=== PATIENT | male | born 1945 | race Caucasian/White ===

== ENCOUNTER 2019-01-27 11:06 | Inpatient (IN) | payer OTHER ==
[~2019-01-27] VITALS: Ht 177.8 cm; Wt 93.9 kg
[2019-01-27 11:10] VITALS: BP_SYST 125
[2019-01-27] MEDS ORDERED: ASPIRIN 81 MG TABLET(ECOTRIN) PO ONE (11:15)
--- NOTE | 2019-01-27 11:15 | NUR ---
Patient presented to ER with chest pain. Patient A&Ox4, rash to left chest and buttocks, pain 2/10, denies N/V/D. Patient brought in by , states patient was found in [place] living in a hotel, and confused. Patient belarusian speaking only states he came to ER for "chest itchy rash". Patietn states he has Diabetes and did check glucose this am , in normal range. 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
--- NOTE | 2019-01-27 11:25 | NUR ---
SHIRA Hitchcock at bedside examining patient.
[2019-01-27] MEDS ORDERED: NITROGLYCERIN 0.4 MG TAB.SUBL SL ONE (11:30)
[2019-01-27] MEDS ORDERED: NACL 0.9% 1,000 ML IV ONE (11:30)
--- NOTE | 2019-01-27 11:35 | NUR ---
Patient to CT with radiology staff via wheelchair
[2019-01-27 11:40] LABS: BASOPHILS % (AUTO) 0.7 % (0.0-2.0); EOSINOPHILS # (AUTO) 0.4 K/uL (0.0-0.4); EOSINOPHILS % (AUTO) 7.5 % (0.0-4.0); HEMATOCRIT 35.2 % (36-54); HEMOGLOBIN 11.8 g/dL (14.0-18.0); LYMPHOCYTES # (AUTO) 1.3 K/uL (1.0-5.5); LYMPHOCYTES % (AUTO) 22.7 % (20.5-51.5); MEAN CORPUSCULAR HEMOGLOBIN 32 pg (27-31); MEAN CORPUSCULAR HGB CONC 34 % (32-36); MEAN CORPUSCULAR VOLUME 96 fL (79.0-98.0); MONOCYTES # (AUTO) 0.5 K/uL (0.0-1.0); MONOCYTES % (AUTO) 8.2 % (1.7-9.3); NEUTROPHILS # (AUTO) 3.6 K/uL (1.8-7.7); NEUTROPHILS % (AUTO) 60.9 % (40.0-70.0); PLATELET COUNT (AUTO) 177 K/uL (130-430); RED BLOOD CELL COUNT(AUTO) 3.66 MIL/uL (4.2-6.2); RED CELL DISTRIBUTION WIDTH 14.7 % (9.0-15.0); WHITE BLOOD COUNT (AUTO) 5.9 K/uL (4.8-10.8)
[2019-01-27 11:53] LABS: ANION GAP 8 (5-15); CALCIUM 8.2 mg/dL (8.4-11.0); CHLORIDE 114 mmol/L (98-107); CREATININE 3.65 mg/dL (0.55-1.30); GLUCOSE 134 mg/dL (70-99); SODIUM SERUM 141 mmol/L (136-145); UREA NITROGEN, BLOOD 57 mg/dL (8-21)
--- NOTE | 2019-01-27 11:53 | NUR ---
Report to Isabella LOPEZ
[2019-01-27 12:02] LABS: ALANINE AMINOTRANSFERASE 12 U/L (12-78); ALBUMIN 2.2 g/dL (3.4-4.8); ASPARTATE AMINOTRANSFERASE 20 U/L (10-37); TOTAL BILIRUBIN 0.1 mg/dL (0.0-1.0)
--- NOTE | 2019-01-27 12:11 | NUR ---
pt is currently getting an x-ray at the bedside.
[2019-01-27 13:15] LABS: BILIRUBIN,URINE NEGATIVE (NEGATIVE); BLOOD, URINE 1+ (NEGATIVE); CLARITY/URINE CLEAR (CLEAR); COLOR,URINE YELLOW (YELLOW); GLUCOSE,URINE TRACE (NEGATIVE); KETONES,URINE NEGATIVE (NEGATIVE); LEUKOCYTE ESTERASE ,URINE NEGATIVE (NEGATIVE); NITRITE, URINE NEGATIVE (NEGATIVE); PROTEIN URINE 2+ (NEGATIVE); UROBILINOGEN,URINE 0.2 (0.2-1.0)
[2019-01-27] MEDS ORDERED: cefTRIAXone 1 GM in D5W 50 ML IV ONE (13:30)
[2019-01-27] MEDS ORDERED: cefTRIAXone 1 GM IVPB PREMIX 50 ML IV ONE (13:30)
[2019-01-27] MEDS ORDERED: D5/0.45 NS 1,000 ML IV ONE (13:30)
[2019-01-27 13:33] LABS: BARBITURATE, URINE NEGATIVE (NEG <=200); BENZODIAZEPINE, URINE NEGATIVE (NEG <=150); CANNABINOID, URINE NEGATIVE (NEG <=50); COCAINE, URINE NEGATIVE (NEG <=150); METHAMPHETAMINES SCREEN,URINE NEGATIVE (NEG <=500); OPIATE, URINE NEGATIVE (NEG <=100); PHENCYCLIDINE SCREEN,URINE NEGATIVE (NEG <=25); UR TRICYCLIC ANTIDEPRESSANTS NEGATIVE (NEG <=300); URINE AMPHETAMINE NEGATIVE (NEG <=500); URINE METHADONE NEGATIVE (NEG <=200); URINE OXYCODONE SCREEN NEGATIVE (NEG <=100); URINE PROPOXYPHENE SCREEN NEGATIVE (NEG <=300)
[2019-01-27 13:38] LABS: BACTERIA,URINE FEW /HPF (None Seen); WBC,URINE 0-3 /HPF (0-3)
--- NOTE | 2019-01-27 14:06 | NUR ---
Patient will be admitted to care of Dr. Vazquez. Admitted to Tele unit. Will go to room 122B. Belongings list completed. Summary report printed. Report will be given at bedside.
--- NOTE | 2019-01-27 14:27 | NUR ---
ADMIT NOTE Received pt from ER to the floor with a diagnosis of aloc AND DEHYDRATION. Admission process initiated. patient oriented to pain management, safety and call light-teach back done.
[2019-01-27 15:14] VITALS: BP_SYST 166
--- NOTE | 2019-01-27 15:18 | NUR ---
Chief School Finance Officer: meet Pt. in ER at the request of Rn. Pt. is homeless and was found in [place] in a hotel. PORCELAIN TURNER met with pt. and pts. daughter. Ange who stated she and her family had been trying to find her father for a long time. Her cousin who resides in [place] was able to find him there in a hotel. Pt. has diabetes and does not take any medication or see any drs. During this conversation, Rn came in to seee pts. feet. Daughter removed pts. shoes and socks and began to cry as she saw her father/pt. had two left foot toes removed. PORCELAIN TURNER assured her that her father was in good hands and she was a good daughter to have been able to track her father down in [place]. Ange stated her cousin put her father on a plane, she picked him up and was going to take him to a dr. but because her father/pt. was talking and not making sense, her and her mom brought pt. in to ER here at [facility]. Aneg [facility] been a [facility] since she was younger. Father has lived in [facility] for years. Ange feels like her father may have declined beginning 5 years ago as he had a son who was in a car accident and from injuries. Ange was told that her father was being admitted to the hospital and she will be in contact with her sister who resides in [place] to come be with her and her father and mother. Addendum: 01/27/19 at 1643 by Tonia ARDON Chief School Finance Officer: Follow up PORCELAIN TURNER met with pt. daughter and formally known as ex- (daughter stated they pt. and never ). Daughter, Sotero stated pt. has no insurance. PORCELAIN TURNER will make a referral to Mata from [employer]. Daughter thanked PORCELAIN TURNER. PORCELAIN TURNER sent Mata from [employer] a email msg. asking for assistance for this pt. PORCELAIN TURNER followed up with a phone call.
--- NOTE | 2019-01-27 15:38 | NUR ---
NOTES During suni gathering and interview with the patient, daughter and , Daughter Ange stated that the family has not seen patient for at least 39 years and that they cannot say if patient current mentation is normal to him. per daughter, a cousin in [place] found her father living in a hotel and ange instructed her cousin to put him in a plane to come to [place]. Per Ange, patient is staying with her other sister who lives in an apartment. When coremaker helper asked Ange if patient staying with sister is supervisor intermediates, or permanent, Ange answered no. When asked where the patient will go after discharge from the hospital, Ange answered I will find him help. Patient was referred to coordinator volunteer services
[2019-01-27 16:50] VITALS: BP_SYST 164
--- NOTE | 2019-01-27 17:33 | NUR ---
ROUNDS/PHOTOS Pt resting quietly in bed with no s/s resp distress, no c/o chest pain or chest pressure. Photos of red, dry skin taken. No changes. Pt's at bedside. Call light within reach.
--- NOTE | 2019-01-27 18:45 | NUR ---
CLOSING NOTE Pt sitting up in bed visiting with family, no s/s resp distress, no c/o chest pain or chest pressure. IVF infusing well to LFA at ordered rate with no s/s infiltration to site. Pt seen by high school social studies tutor earlier. Needs met, call light within reach.
[2019-01-27 19:00] VITALS: BP_SYST 153
--- NOTE | 2019-01-27 19:15 | NUR ---
change of shift,.pt.is a new admission;01/27/19.pt.presents language barrier;czech;primary language.pt.presents cutaneous issues;dermatitis;several locations;kathryn;rn :day-shift has photographed th skin presentations.iv access;intact;patent; iv fluids infusing.general status stable.respiratory statu stable@room air;unlabored.pt.utilizing the urinal;w/in reach of the pt.call light/telephone w/in reach of the pt. is present w/in sdch but has yet to assess the pt.
[2019-01-27 20:00] VITALS: BP_SYST 157
--- NOTE | 2019-01-27 20:00 | NUR ---
pt.assessed.v/s assessed.b/p values elevated.to f/u apprise .pt.presents divehi;primary language:i am to attend to the pt;divehi.iv aces intact;patent.iv fluids infusing.no c/o pain,nausea.pt.utilizing the urinal.i have inspected the urinal;i have measured/cleaned the urinal.placed w/in reach of the pt.call light/telephone w/in reach of the pt.
--- NOTE | 2019-01-27 20:30 | NUR ---
present. is assessing the pt.i have apprised and presented the pt's cutaneous issue;dermatitis;several locations. has assessed the cutaneous presentation.i have apprised the pt's medical hx;pt.presents diabetes.i have assessed the blood glucose.value;141mg/dl.i have apprised the pt/dtr of the value.pt's dtr has returned to the pt's room.dtr is apprised of ;attending md@[facility]. has procured additional information re:pt's social/medical history form the dtr.
--- NOTE | 2019-01-27 21:00 | NUR ---
2100p medications administered.pt.capable to consume medications whole.pt's dtr had requested diet;josue clemons the pt. i have provided the drink.no additional requests@posited @this hour.
[2019-01-27] MEDS: amLODIPine BESYLATE 10 MG TABLET PO SCH ×2 (21:35→21:38)
--- NOTE | 2019-01-27 22:00 | NUR ---
pt.assed.pt.preset quiewcxt affctc;alms,somnolent.i have attended to the urinal;measured/cleaned.iv access;intact;patent;iv fluids infusing.no c/o webster,anusea.iv access intrxt;'patent.pt.capable to reposition self.call light/telephone w/in reach of the pt.
--- NOTE | 2019-01-28 | NUR ---
pt.assessed.v/s assessed.values w/in normal limits.no c/o pain,nausea.urinal inspected.i have attended to the urinal;measured cleaned. placed w/in reach of the pt.iv access intact;patent iv fluids infusing.general status stable.respiratory status stable;unlabored.; call light/telephone w/in the reach of the pt.
--- NOTE | 2019-01-28 00:48 | NUR ---
paged paged for Dr Vazquez, dialed . s/w Karoline
[2019-01-28 00:56] VITALS: BP_SYST 158
--- NOTE | 2019-01-28 02:00 | NUR ---
pt.assessed.pt.presents quiescent affect;calm,somnolent.iv access intact;patent.iv fluids infusing.i have inspected the urinal;clean:w/in reach of the pt.general status stable.respiratory status stable@room air.pt.capable to reposition self. call light/telephone w/in reach of the pt.
--- NOTE | 2019-01-28 04:00 | NUR ---
pt.assessed.pt.presents quiescent affect;calm,somnolent.pt.assessed for cleanliness.i have inspected the urinal:measured/cleaned placed w/in reach of the pt.iv access;intact;patent;iv fluids infusing.general status stable.respiratory status stable: unlabored.pt.capable to reposition self.call light/telephone w/in reach of the pt.
--- NOTE | 2019-01-28 06:30 | NUR ---
pt.assessed.pt.presents quiescent affect;calm,viewing tv programming;dtr remained@the bedside.no c/o pain,nausea. iv access;intact;patent;iv fluids infusing.pt.assessed for cleanliness.general status stable.respiratory status stable.pt. capable to reposition self.call light/telephone w/in reach of the pt.
--- NOTE | 2019-01-28 07:50 | NUR ---
OPENING NOTE RECEIVED PATIENT FROM DATA WAREHOUSE ADMINISTRATOR. PATIENT AWAKE IN BED TALKING TO DAUGHTER. A/OX3. DENIES PAIN. ROOM AIR. NO ACUTE DISTRESS. NO SOB. RESPIRATION EVEN AND UNLABORED. SKIN WARM AND DRY TO TOUCH. IV INTACT AND PATENT; NO REDNESS/INFILTRATION NOTED. BED LOW AND LOCKED POSITION. SIDERAIL UPX3. BED ALARM ON. CALL LIGHT IN REACH. CONT TO MONITOR.
[2019-01-28 08:00] VITALS: BP_SYST 140
[2019-01-28 08:35] LABS: ANION GAP 4 (5-15); CALCIUM 8.3 mg/dL (8.4-11.0); CHLORIDE 111 mmol/L (98-107); CREATININE 2.82 mg/dL (0.55-1.30); GLUCOSE 125 mg/dL (70-99); POTASSIUM 4.1 mmol/L (3.5-5.1); SODIUM SERUM 135 mmol/L (136-145); UREA NITROGEN, BLOOD 45 mg/dL (8-21)
[2019-01-28] MEDS: amLODIPine BESYLATE 10 MG TABLET PO SCH (08:38)
[2019-01-28] MEDS: ASPIRIN 81 MG TAB.CHEW PO SCH (08:38)
--- NOTE | 2019-01-28 08:40 | NUR ---
MEDS ALL DUE MEDS ADMINISTERED ORDERED AND CASEY WELL. TEACHING DONE ON MEDICATION AND ASE. RUDY DAUGHTER AT BEDSIDE
--- NOTE | 2019-01-28 10:45 | NUR ---
NOTE PATIENT SITTING UP IN BED TALKING TO YOUNGER BROTHER. ALL NEEDS MET. CONT TO MONITOR
--- NOTE | 2019-01-28 10:53 | NUR ---
Nutrition Update Ashok Scale 13 noted. Pt admitted for altered level of consciousness and dehydration Diet: Renal BMI: 29.9 m2/kg RD to follow per nutrition care standards.
--- NOTE | 2019-01-28 11:43 | NUR ---
NOTE PATIENT RESTING IN BED. STABLE. NO ACUTE DISTRESS. NOTED RISE AND FALL OF CHEST. RESP EVEN AND UNLABORED. SKIN WARM AND DRY TO TOUCH. CALL LIGHT IN REACH. CONT TO MONITOR
[2019-01-28 12:34] VITALS: BP_SYST 134
--- NOTE | 2019-01-28 13:48 | NUR ---
NOTE PATIENT SITTING UP IN BED. STABLE. TALKING TO RUDY. REQUESTED FOR MORE ICE WATER. ALL NEEDS MET. CALL LIGHT IN REACH. CONT TO MONITOR
--- NOTE | 2019-01-28 13:54 | NUR ---
/ SPOKE TO BROOKLYNFUAD TO REQUEST FOR CONSULT WITH ; IS ONCALL. AWAITING FOR CALL BACK
--- NOTE | 2019-01-28 15:40 | NUR ---
NOTE STABLE. DENIES PAIN. ASSISTED PATIENT TO BATHROOM WITH FWW. PATIENT HAD SLOW GAIT. ALL NEEDS MET CONT TO MONITOR.
[2019-01-28 17:00] VITALS: BP_SYST 139
--- NOTE | 2019-01-28 17:01 | NUR ---
NOTE PATIENT AWAKE IN BED TALKING TO FAMILY. DENIES ANY PAIN. NO ACUTE DISTRESS. CLEAN AND DRY. ALL NEEDS MET. CONT TO MONITOR
--- NOTE | 2019-01-28 17:13 | NUR ---
Dietitian Recommendations 1. Continue renal standard diet Please see Nutrition Assessment for further details. LT, RD
--- NOTE | 2019-01-28 17:27 | NUR ---
SPOKE TO REGARDING CONSTIPATION AND DVT PROPHYLAXIS RECEIVED NEW ORDER FOR COLACE AND MILK OF MAGNESIA ORDERED FOR CONSTIPATION AND BILAT SCDs FOR DVT PPX. ORDER NOTED AND CARRIED OUT. CONT TO MONITOR
[2019-01-28] MEDS ORDERED: MILK OF MAGNESIA 30 ML UDC PO PRN (17:30)
--- NOTE | 2019-01-28 18:32 | NUR ---
SEEN AND EXAMINED BY AT BEDSIDE. INFORMED MD REGARDING HYDRATION; WILL ORDER BLOODWORK FOR TOMORROW AND WILL DECIDE AFTER RESULTS. RUDY AT BEDSIDE ASSISTING WITH DINNER
--- NOTE | 2019-01-28 18:52 | NUR ---
CLOSING NOTE PATIENT AWAKE IN BED TALKING TO FAMILY. STABLE. DENIES ANY PAIN. NO ACUTE DISTRESS. NO SOB. RESP EVEN AND UNLABORED. IV INTACT AND PATENT; NO REDNESS/INFILTRATION NOTED. SKIN WARM AND DRY TO TOUCH. BED IN LOW AND LOCKED POSITION. SIDERAIL UPX2. BED ALARM ON. CASEY BILAT SCDs. ALL NEEDS MET. CONT TO MONITOR. CALL LIGHT IN REACH. WILL ENDORSE TO ONCOMING SHIFT
--- NOTE | 2019-01-28 19:20 | NUR ---
CHANGE OF SHIFT: pt. awake, alert with family members at bedside, swiss speaking, denies any discomfort. fall risk precautions. no complaints noted. call light within reach. will reassess later.
--- NOTE | 2019-01-28 20:00 | NUR ---
NOTES: Dr. Valladares here, seen pt. and talked to pt. and . denies any chest pain nor discomfort at this time. MD wants to start on IVF. moves all extremities. IV lock on left antecubital. on operating room scheduler and shows sinus rhythm and ST depression. will stay for the night. call within reach, on fall risk precautions.
[2019-01-28] MEDS: DOCUSATE SODIUM 100 MG CAPSULE PO SCH (20:14)
[2019-01-28 20:15] VITALS: BP_SYST 143
[2019-01-28] MEDS: NACL 0.9% 1,000 ML IV SCH (21:16)
--- NOTE | 2019-01-28 22:00 | NUR ---
NOTES: urine sent for test ordered by Dr. Valladares. IV NS started @ 50 cc/hr. pt. informed. needs attended.
--- NOTE | 2019-01-29 00:35 | NUR ---
NOTES: pt. checked, sleeping, kept warm with blanket.
[2019-01-29 00:48] VITALS: BP_SYST 155
--- NOTE | 2019-01-29 02:58 | NUR ---
NOTES: awakened, assisted to the restroom with walker.
--- NOTE | 2019-01-29 04:37 | NUR ---
NOTES: pt. went back to sleep. no complaints. cardiac pattern unchanged.
--- NOTE | 2019-01-29 05:47 | NUR ---
NOTES: pt. already awake, cannot go back to sleep, remain at bedside helping. TV on, feeling happy this am, no complaints. IVF infusing.
--- NOTE | 2019-01-29 06:25 | NUR ---
CLOSING NOTES; pt. awake, alert, no acute distress. due am lab draw. IVF patent and infusing. denies any discomfort at this time. for further care and assistance. at bedside, call light within reach.
[2019-01-29 06:51] LABS: BASOPHILS % (AUTO) 0.6 % (0.0-2.0); EOSINOPHILS # (AUTO) 0.5 K/uL (0.0-0.4); HEMATOCRIT 33.7 % (36-54); HEMOGLOBIN 11.5 g/dL (14.0-18.0); LYMPHOCYTES # (AUTO) 1.3 K/uL (1.0-5.5); LYMPHOCYTES % (AUTO) 19.4 % (20.5-51.5); MEAN CORPUSCULAR HEMOGLOBIN 32 pg (27-31); MEAN CORPUSCULAR HGB CONC 34 % (32-36); MEAN CORPUSCULAR VOLUME 95 fL (79.0-98.0); MONOCYTES # (AUTO) 0.5 K/uL (0.0-1.0); MONOCYTES % (AUTO) 7.2 % (1.7-9.3); NEUTROPHILS # (AUTO) 4.4 K/uL (1.8-7.7); NEUTROPHILS % (AUTO) 64.8 % (40.0-70.0); PLATELET COUNT (AUTO) 171 K/uL (130-430); RED BLOOD CELL COUNT(AUTO) 3.54 MIL/uL (4.2-6.2); RED CELL DISTRIBUTION WIDTH 14.8 % (9.0-15.0); WHITE BLOOD COUNT (AUTO) 6.8 K/uL (4.8-10.8)
[2019-01-29 07:12] LABS: ANION GAP 3 (5-15); CHLORIDE 111 mmol/L (98-107); GLUCOSE,RANDOM 124 mg/dl (70-99); POTASSIUM 4.2 mmol/L (3.5-5.1); SODIUM SERUM 134 mmol/L (136-145)
--- NOTE | 2019-01-29 07:34 | NUR ---
OPENING NOTE PATIENT EASILY AROUSABLE. STABLE. DENIES ANY PAIN. ROOM AIR. NO ACUTE DISTRESS. NO SOB. RESPIRATION EVEN AND UNLABORED. SKIN WARM AND DRY TO TOUCH. IV INTACT AND PATENT; CASEY IVF HYDRATION ORDERED. BED IN LOW AND LOCK POSITION. SIDERAIL UPX2. BED ALARM ON. ALL NEEDS MET. CALL LIGHT IN REACH. CONT TO MONITOR
[2019-01-29 07:46] VITALS: BP_SYST 146
[2019-01-29 07:49] LABS: UREA NITROGEN, BLOOD 40 mg/dL (8-21)
[2019-01-29 07:51] LABS: CALCIUM 8.1 mg/dL (8.4-11.0); CREATININE 2.61 mg/dL (0.55-1.30)
[2019-01-29 07:52] LABS: PHOSPHORUS 2.8 mg/dL (2.7-4.5)
[2019-01-29 07:54] LABS: ANION GAP 4 (5-15); CHLORIDE 112 mmol/L (98-107); GLUCOSE 121 mg/dL (70-99); POTASSIUM 4.4 mmol/L (3.5-5.1); SODIUM SERUM 136 mmol/L (136-145)
[2019-01-29 07:56] LABS: UREA NITROGEN, BLOOD 39 mg/dL (8-21)
[2019-01-29 07:57] LABS: CALCIUM 8.1 mg/dL (8.4-10.2)
[2019-01-29] MEDS: amLODIPine BESYLATE 10 MG TABLET PO SCH (08:20)
[2019-01-29] MEDS: DOCUSATE SODIUM 100 MG CAPSULE PO SCH ×2 (08:20→19:50)
[2019-01-29] MEDS: ASPIRIN 81 MG TAB.CHEW PO SCH (08:21)
--- NOTE | 2019-01-29 08:22 | NUR ---
NOtes All due meds administered as ordered. Teaching done on medications and side effects. All needs met, at bedside. Call light within reach. Will continue to monitor.
--- NOTE | 2019-01-29 10:00 | NUR ---
NOTE PATIENT AWAKE IN BED. RUDY AT BEDSIDE. STABLE. NO ACUTE DISTRESS. ALL NEEDS MET. CONT TO MONITOR
--- NOTE | 2019-01-29 12:20 | NUR ---
NOTE PATIENT STABLE. DENIES PAIN. NO ACUTE DISTRESS. RUDY ASSISTING WITH LUNCH. ALL NEEDS MET. CONT TO MONITOR
[2019-01-29 12:30] VITALS: BP_SYST 153
--- NOTE | 2019-01-29 14:30 | NUR ---
NOTED PATIENT REQUESTED FOR SNACK. ALL NEEDS MET. CALL LIGHT IN REACH. CONT TO MONITOR
[2019-01-29] MEDS: NACL 0.9% 1,000 ML IV SCH (15:46)
[2019-01-29 16:32] VITALS: BP_SYST 143
--- NOTE | 2019-01-29 17:00 | NUR ---
NOTE SEEN AND EXAMINED BY AT BEDSIDE. PER MD AWAITING FOR HGBA1C RESULT BEFORE ORDERING BLOOD SUGAR MONITORING. PATIENT IS STABLE WITH NO S/SX HYPO/HYPERGLYCEMIA NOTED. CONT TO MONITOR
[2019-01-29] MEDS ORDERED: ONDANSETRON HCL 4 MG/2 ML VIAL IVP PRN (17:15)
--- NOTE | 2019-01-29 18:35 | NUR ---
CLOSING NOTE PATIENT STABLE. AWAKE TALKING TO . DENIES ANY PAIN. NO ACUTE DISTRESS. NO SOB. RESPIRATION EVEN AND UNLABORED. SKIN WARM AND DRY TO TOUCH. IV INTACT AND PATENT; NO REDNESS/INFILTRATION NOTED. CASEY IVF HYDRATION ORDERED. NO S/SX HYPO/HYPERGLYCEMIA NOTED. BED IN LOW AND LOCKED POSITION. SIDERAIL X2. BED ALARM ON. CASEY BILAT SCDs. RUDY AT BEDSIDE. ALL NEEDS MET. CALL LIGHT IN REACH. CONT TO MONITOR. WILL ENDORSE TO ONCOMING SHIFT
[2019-01-29 18:58] LABS: URINE SODIUM, RANDOM 110 mmol/L (40-220)
--- NOTE | 2019-01-29 19:30 | NUR ---
INITIAL NOTE RECEIVED PATIENT AWAKE, ALERT AND ORIENTED WITH FAMILY AT THE BEDSIDE. NO SOB NOTED. DENIES ANY PAIN OR N/V AT THIS TIME. IVF INFUSING. AMBULATES WITH ASSIST AD A WALKER. ADVISED PATIENT'S TO CALL FOR ASSISTANCE DURING THE NIGHT. CARE AND MONITORING WILL BE PROVIDED. CALL LIGHT WITHIN REACH. BED ALARM ON AND AT LOWEST POSITION AT ALL TIMES. NEEDS ATTENDED. REPOSITIONS SELF. KEPT WARM AND COMFORTABLE.
--- NOTE | 2019-01-29 19:50 | NUR ---
RN NOTE DUE MED GIVEN SCHEDULED. NO COMPLAINTS. USED URINAL. NEEDS ATTENDED.
[2019-01-29 20:00] VITALS: BP_SYST 127
--- NOTE | 2019-01-29 22:00 | NUR ---
RN NOTE PATIENT AWAKE AND ALERT WITH DAUGHTER AT THE BEDSIDE. PATIENT'S LEFT. NO COMPLAINTS. NEEDS ATTENDED.
--- NOTE | 2019-01-29 22:30 | NUR ---
URINE INCONTINENCE/HHN PATIENT MISSED THE URINAL. INCONTINENCE CARE DONE. REPOSITIONED. PATIENT WHEEZING ON EXERTION. RT CALLED FOR HHN. WILL CONTINUE TO MONITOR. Addendum: 01/30/19 at 0047 by Carlo Powers RN WRONG PATIENT
--- NOTE | 2019-01-30 | NUR ---
RN NOTE PATIENT SLEEPING AT THIS TIME WITH DAUGHTER AT THE BEDSIDE. NO SOB OR GRIMACING NOTED. IVF INFUSING.
[2019-01-30 00:32] VITALS: BP_SYST 130
--- NOTE | 2019-01-30 02:30 | NUR ---
RN NOTE ASLEEP, MOVES OCCASIONALLY. DAUGHTER AT THE BEDSIDE. NO DISTRESS NOTED.
--- NOTE | 2019-01-30 04:30 | NUR ---
RN NOTE PATIENT SLEEPING COMFORTABLY IN BED WITH DAUGHTER AT THE BEDSIDE. NO ACUTE DISTRESS NOTED. SELF TURN.
--- NOTE | 2019-01-30 06:17 | NUR ---
END NOTE AFEBRILE. VS STABLE ALL NIGHT. FAMILY AT THE BEDSIDE. NO COMPLAIN OF PAIN, SOB OR N/V THROUGHOUT THE NIGHT. TOLERATING DIET. AMBULATORY WITH ASSIST AND A WALKER. IVF INFUSING. AM LABS TODAY. CARE AND MONITORING PROVIDED PER PROTOCOL. CALL LIGHT WITHIN REACH. BED ALARM OFF PER PATIENT'S REQUEST. BED AT LOWEST POSITION AT ALL TIMES. REPOSITIONS SELF. NEEDS ATTENDED. KEPT WARM AND COMFORTABLE. SCDS OFF PER PATIENT'S REQUEST.
[2019-01-30 06:27] LABS: BASOPHILS % (AUTO) 0.7 % (0.0-2.0); EOSINOPHILS # (AUTO) 0.6 K/uL (0.0-0.4); EOSINOPHILS % (AUTO) 8.4 % (0.0-4.0); HEMATOCRIT 33.9 % (36-54); HEMOGLOBIN 11.6 g/dL (14.0-18.0); LYMPHOCYTES # (AUTO) 1.7 K/uL (1.0-5.5); LYMPHOCYTES % (AUTO) 25.8 % (20.5-51.5); MEAN CORPUSCULAR HEMOGLOBIN 32 pg (27-31); MEAN CORPUSCULAR HGB CONC 34 % (32-36); MEAN CORPUSCULAR VOLUME 95 fL (79.0-98.0); MONOCYTES # (AUTO) 0.5 K/uL (0.0-1.0); MONOCYTES % (AUTO) 7.7 % (1.7-9.3); NEUTROPHILS # (AUTO) 3.8 K/uL (1.8-7.7); NEUTROPHILS % (AUTO) 57.4 % (40.0-70.0); PLATELET COUNT (AUTO) 171 K/uL (130-430); RED BLOOD CELL COUNT(AUTO) 3.58 MIL/uL (4.2-6.2); RED CELL DISTRIBUTION WIDTH 14.6 % (9.0-15.0); WHITE BLOOD COUNT (AUTO) 6.7 K/uL (4.8-10.8)
[2019-01-30 06:40] LABS: ALANINE AMINOTRANSFERASE 13 U/L (12-78); ALBUMIN 1.7 g/dL (3.4-4.8); ANION GAP 3 (5-15); ASPARTATE AMINOTRANSFERASE 16 U/L (10-37); CHLORIDE 111 mmol/L (98-107); CREATININE 2.63 mg/dL (0.55-1.30); GLUCOSE 106 mg/dL (70-99); POTASSIUM 4.1 mmol/L (3.5-5.1); SODIUM SERUM 134 mmol/L (136-145); TOTAL BILIRUBIN 0.3 mg/dL (0.0-1.0); UREA NITROGEN, BLOOD 39 mg/dL (8-21)
[2019-01-30 08:00] VITALS: BP_SYST 159
--- NOTE | 2019-01-30 08:00 | NUR ---
initial notes rec patient awake alert with ivf infusing well on the l forearm. no infiltration noted. resp easy and unlabored. no sob noted. denies pain or any confusion at this time. bed to the lowest position and side rails up and locked. call light within reached and knows when to call for assistance.
[2019-01-30] MEDS: ASPIRIN 81 MG TAB.CHEW PO SCH (08:52)
[2019-01-30] MEDS: DOCUSATE SODIUM 100 MG CAPSULE PO SCH ×2 (08:52→22:06)
[2019-01-30] MEDS: amLODIPine BESYLATE 10 MG TABLET PO SCH (08:53)
--- NOTE | 2019-01-30 10:00 | NUR ---
rounds due meds given and justin well. at bedside. no sob noted.
[2019-01-30] MEDS: NACL 0.9% 1,000 ML IV SCH (11:13)
[2019-01-30 11:30] VITALS: BP_SYST 130
--- NOTE | 2019-01-30 12:19 | NUR ---
manager social services, Follow up from wednesday JINRIKISHA DRIVER met with Pts. ex- at her request. She stated she met Mata and gave JINRIKISHA DRIVER some documents at Mata's request. JINRIKISHA DRIVER will be happy to fax them over. JINRIKISHA DRIVER faxed over pt. documents from ex-. JINRIKISHA DRIVER received confirmation. JINRIKISHA DRIVER called and left a msg. for Mata alerting him of the documentation faxd over. Addendum: 01/31/19 at 1318 by Tonia Mendes JINRIKISHA DRIVER [employer] Follow up. JINRIKISHA DRIVER met with pt and . Pt. was given a homeless packet yesterday. JINRIKISHA DRIVER wanted to complete the DCPA. stated upon discharge, pt is going to be homeless. She will take him to her home for a few days, but really needs assitance. JINRIKISHA DRIVER let her know that a referral for medical has been initiated. JINRIKISHA DRIVER also pointed out in the resources that the pt. can go to a mental health clinic to see if he can get an assessment. JINRIKISHA DRIVER let them know if he does have a mental health dx. they can access a program called [facility] through [facility]. Pt. must be homeless with a mental health Dx. Family thanked JINRIKISHA DRIVER who will remain available as needed.
--- NOTE | 2019-01-30 12:30 | NUR ---
rounds healthcare social worker at bedside and as per family's request wants to see psychiatrist, stated to wait for dr anna and asked him when he makes rounds.
--- NOTE | 2019-01-30 14:00 | NUR ---
rounds ambulated to the br using the walker and walking slowly bec of pain on the foot but justin well. hand a small amount of bm. no sob noted. call light within reached.
[2019-01-30 15:18] VITALS: BP_SYST 155
--- NOTE | 2019-01-30 16:00 | NUR ---
rounds seen by dr anna and spoke to patient's . resting comfortably.call light within reached .
--- NOTE | 2019-01-30 18:40 | NUR ---
closing notes resting comfortably. no sob noted. with family at bedside. call light within reached. ivf infusing well on the l forearm. no infiltration noted.denies pain. bed to the lowest position and call light within reached.
[2019-01-30 20:00] VITALS: BP_SYST 147
--- NOTE | 2019-01-30 20:00 | NUR ---
Initial note: Patient is awake, no distress. tolerating room air. IV site is patent and benign, receiving fluids as ordered. Call light is with patient. Will continue with plan of care.
--- NOTE | 2019-01-31 00:33 | NUR ---
Rounds: Patient is awake, no distress. Tolerating room air. IV fluids infusing as ordered. Will continue monitoring.
[2019-01-31 01:28] VITALS: BP_SYST 145
--- NOTE | 2019-01-31 03:36 | NUR ---
Rounds: Patient is resting in bed with eyes closed, no distress. Tolerating room air. IV site is patent and benign. Call light with patient. Will continue to monitor.
--- NOTE | 2019-01-31 06:32 | NUR ---
Closing note: Patient is resting in bed, no distress. Tolerating room air. IV fluids infusing as ordered. All needs met. Hourly rounding performed throughout shift. Safety and fall precautions observed. Will endorse care to dayshift RN.
[2019-01-31 06:38] LABS: ANION GAP 4 (5-15); CALCIUM 7.7 mg/dL (8.4-11.0); CHLORIDE 112 mmol/L (98-107); CREATININE 2.41 mg/dL (0.55-1.30); GLUCOSE 117 mg/dL (70-99); POTASSIUM 4.3 mmol/L (3.5-5.1); SODIUM SERUM 137 mmol/L (136-145); UREA NITROGEN, BLOOD 34 mg/dL (8-21)
[2019-01-31 08:00] VITALS: BP_SYST 141
--- NOTE | 2019-01-31 08:00 | NUR ---
ASSUMPTION OF CARE: RECEIVED PT A/A/OX3, DX:RISK FOR INJURY, R/T ALOC, VSS, NO S/S OF DISTRESS, ORIENTED TO NAME, TIME, SITUATION, BREATH SOUNDS ARE CLEAR, BREATHING UNLABORED, IV SITE INTACT, PATENT, NO REDNESS OR SWELLING, ORIENTED TO UNIT, CALL LIGHT PLACED WITHIN REACH, WILL CON'T TO MONITOR AND ASSESS.
[2019-01-31] MEDS: ASPIRIN 81 MG TAB.CHEW PO SCH (08:33)
[2019-01-31] MEDS: DOCUSATE SODIUM 100 MG CAPSULE PO SCH (08:34)
[2019-01-31] MEDS: amLODIPine BESYLATE 10 MG TABLET PO SCH (08:35)
[2019-01-31] MEDS: NACL 0.9% 1,000 ML IV SCH (08:38)
--- NOTE | 2019-01-31 09:00 | NUR ---
RESIDENT SERVICES COORDINATOR: MORNING MEDS GIVEN, PER ORDERED BY Keyla, TOLERATED WELL, WILL CON'T TO MONITOR AND ASSESS.
[2019-01-31 12:15] VITALS: BP_SYST 121
--- NOTE | 2019-01-31 15:00 | NUR ---
NURSES NOTES: PT APPEARS STABLE, NO S/S OF DISTRESS, VS WNL, NO C/O PAIN OR DISCOMFORT, AT BEDSIDE ENGAGING IN PT CARE, BOTH ORIENTED TO UNIT, CALL LIGHT AND STAFF, WILL CON'T TO MONITOR AND ASSESS.
[2019-01-31 16:33] VITALS: BP_SYST 130; BP_SYST 149
--- NOTE | 2019-01-31 18:55 | NUR ---
VISIT: AT BEDSIDE FOR ASSESSMENT OF PT, DISCUSSED POC WITH PT AND , VERBALIZES UNDERSTANDING, WILL CON'T TO MONITOR AND ASSESS.
--- NOTE | 2019-01-31 19:37 | NUR ---
Initial Notes Received handoff report from offgoing nurse at the bedside. Patient is awake and alert, resting comfortably in bed. No SOB, no acute distress, no complaints of pain at this time. Bed is locked, in the lowest position, 2x side rails up, bed alarm is on. Call light is within reach. Encouraged patient to call for assistance.
[2019-01-31 19:42] VITALS: BP_SYST 136
--- NOTE | 2019-01-31 20:40 | NUR ---
D/C Patient Patient given medication reconciliation form and D/C instructions. Exit Care provided. Patient verbalized understanding. MD discussed with patient the results and treatment provided. Discharged with wheelchair for discharge to home. Family to take the patient with private auto. Patient in stable condition, ID band removed. IV catheter removed, intact and dressing applied, no active bleeding. Rx of Norvasc and Aspirin given. Patient educated on pain management. All belongings sent with patient.
== END 2019-01-31 20:40 | disposition home or self-care (01) | DRG 682 ==
LOC: SED 11:06 → STU 13:26 → SMU 01-29 21:06
PROVIDERS: ADMIT Family Medicine; ATTEND Family Medicine
DX: N17.9 Acute kidney failure, unspecified (principal); G93.41 Metabolic encephalopathy; E11.22 Type 2 diabetes mellitus with diabetic chronic kidney disease; I12.9 Hypertensive chronic kidney disease with stage 1 through stage 4 chronic kidney disease, or unspecified chronic kidney disease; M19.90 Unspecified osteoarthritis, unspecified site; N18.9 Chronic kidney disease, unspecified; D64.9 Anemia, unspecified; R07.9 Chest pain, unspecified; Z89.421 Acquired absence of other right toe(s); Z59.0 Homelessness
CPT/HCPCS: 36415; 70450-TC; 71045; 76770; 80048; 80053; 80069; 80307; 81000-TC; 82570-TC; 82962; 83036; 83605; 83880; 84100-TC; 84302-TC; 84484; 85025; 87040-TC; 87086; 93005; 99285; G0378; J0696; J7030; J7060